=== PATIENT | female | born 1960 | race Caucasian/White ===

== ENCOUNTER → 2016-04-07 | Outpatient (CLI) | payer BC ==
--- NOTE | 2016-04-07 13:49 | MA ---
Screening Digital Mammogram With iCAD Analysis Clinical Indications: Routine screening. Technique: Standard cephalocaudal projections are obtained. Digital breast tomosynthesis was performe d in the MLO projection with reconstruction at 1.0 mm slice thickness and composite MLO views reconst ructed. This examination is processed by the iCAD computer aided detection system. Comparison: April 2014, January 2013, November 2011, December 2010, April 2009, April 2008. Breast density: Type B; Scattered fibroglandular densities. Findings: CAD was reviewed. No masses, suspicious calcifications or secondary signs of malignancy are seen. There has been no significant change in the appearance of either breast. Impression: Negative mammogram. BI-RADS 1. Recommendation: Routine mammographic screening in one year as long as physical examination is neg[facility]. Negative mammography should not preclude additional workup of a clinically suspicious finding. The patient's information is entered into a reminder system with a target due date for her next mammo gram.
== END ==
LOC: FIMAGING 09:46
DX: Z12.31 Encounter for screening mammogram for malignant neoplasm of breast (principal)

== ENCOUNTER → 2017-03-25 | Outpatient (CLI) | payer BC | LOC: FIMAGING 11:20 | PROVIDERS: ATTEND Family Medicine | DX: Z12.31 Encounter for screening mammogram for malignant neoplasm of breast (principal) ==

== ENCOUNTER 2017-12-21 07:15 | Observation (INO) | payer BC ==
--- NOTE | 2017-12-20 18:26 | GHP ---
DATE OF SURGERY: 12/21/2017. HISTORY: The patient is a 57-year-old female who presents with right knee pain, swelling, and stiffn ess. This has been chronic and progressive. I have taken care of her knee for some time now and she has had numerous approaches and therapies. She has had a right knee arthroscopic chondroplasty in 2 012. She has had steroid injection, hyaluronic acid injection, PRP injections. A recent MRI shows s evere tricompartment osteoarthritis, most severe in the medial and patellofemoral spaces. Her knee i s significantly impacting her quality of life, impacting her range of motion, comfort, gait, even act ivities of daily living. A right total knee arthroplasty is planned. PAST MEDICAL HISTORY: Medical concerns include elevation of cholesterol, not being treated medically . She has a history of migraines. She has had a procedure on her right knee as noted, left wrist, l eft leg, hysterectomy, appendectomy. She is using only edgardo gel. ALLERGIES: She has a number of allergies including Ancef, causing severe headache; Biaxin, causing a headache; Compazine; doxycycline; and penicillins. SOCIAL HISTORY: She is a nonsmoker. REVIEW OF SYSTEMS: Negative for cardiopulmonary disease. PHYSICAL EXAM: GENERAL: The patient is a well-developed, well-nourished female in no apparent distr ess. HEAD AND NECK: Normocephalic, atraumatic. CHEST: Clear. CARDIOVASCULAR: Regular rate and r hythm. ABDOMEN: Soft. NEUROLOGIC: She is alert and oriented x3. EXTREMITIES: Examination of the right knee shows a slight flexion contracture, flexion to about 125 degrees. She has a small effusi on. She has diffuse joint line tenderness. Ligamentously, the knee feels stable. SKIN: Intact. N EUROVASCULAR: Intact. IMPRESSION: Right knee osteoarthritis. PLAN: Right total knee arthroplasty. Benefits and risks of surgery have been reviewed with the bernie ent. She understands that the risks include infection, damage to blood vessel or nerve, failure or l oosening of components and need for revision, blood clot in the leg or lungs, bleeding, and need for transfusion. She really has exhausted other measures of managing her knee and is ready to proceed wi th a knee replacement. She has signed a consent form and wishes to proceed. /[id number]/MODL
[~2017-12-21 07:15] MED LIST: POVIDONE-IODINE 20 ML in SODIUM CL IRRIG SOLUTION 500 ML IRR ONE; ROPIVACAINE 0.2% 80 MG, EPINEPHrine 0.2 MG, KETOROLAC TROMETHAMINE 30 MG in SYRINGE 0 ML IU ONE; TRANEXAMIC ACID 1,000 MG in NS 100 ML IV ONE; VANCOMYCIN 1 GM in NS 250 ML IV ONE; VANCOMYCIN PHARMACY TO DOSE MISC ONE
[2017-12-21] MEDS ORDERED: DEXAMETHASONE 4 MG/ML VIAL IVP ONE (10:33)
[2017-12-21] MEDS ORDERED: ACETAMINOPHEN 325 MG TAB PO ONE (10:33)
[2017-12-21] MEDS ORDERED: ONDANSETRON 4 MG/2 ML VIAL IVP ONE (10:33)
[2017-12-21] MEDS ORDERED: FAMOTIDINE 20 MG TAB PO ONE (10:33)
[2017-12-21] MEDS ORDERED: GABAPENTIN 300 MG CAP PO ONE (10:33)
[2017-12-21] MEDS ORDERED: LR 1,000 ML IV ONE (10:34)
[2017-12-21] MEDS ORDERED: ceFAZolin 1 GM/5 ML SYR ONE (10:59)
--- NOTE | 2017-12-21 12:34 | PDHPUP ---
History & Physical Update H&P update statement: This history and physical update is based on an assessment of the patient which was completed after admission or registration (within 24 hours), but prior to the surgery/procedure. no change H&P update: H&P reviewed & patient examined (no change)
[2017-12-21] MEDS ORDERED: fentaNYL 100 MCG/2 ML INJ IVP PRN (12:43)
[2017-12-21] MEDS ORDERED: DEXAMETHASONE 4 MG/ML VIAL IVP PRN (12:43)
[2017-12-21] MEDS ORDERED: NALOXONE HCL 0.4 MG/ML INJ IVP PRN (12:43)
[2017-12-21] MEDS ORDERED: MIDAZOLAM 2 MG/2 ML VIAL IVP ONE (12:43)
[2017-12-21] MEDS ORDERED: oxyCODONE IR 5 MG TAB PO PRN (12:43)
[2017-12-21] MEDS ORDERED: ACETAMINOPHEN 500 MG TAB PO PRN (12:43)
[2017-12-21] MEDS ORDERED: ONDANSETRON 4 MG/2 ML VIAL IVP PRN ×2 (12:43→15:27)
[2017-12-21] MEDS ORDERED: ALBUTEROL 3 ML DEYVIAL IH PRN (12:43)
[2017-12-21] MEDS ORDERED: HYDROmorphONE/DILAUDID 2 MG/ML INJ IVP PRN (12:43)
[2017-12-21] MEDS ORDERED: MIDAZOLAM 2 MG/2 ML VIAL ONE (12:47)
[2017-12-21] MEDS ORDERED: PROPOFOL/EMULSION 500 MG/50 ML BOTTLE IV ONE ×2 (12:53)
[2017-12-21] MEDS ORDERED: ONDANSETRON 4 MG/2 ML VIAL ONE (12:54)
[2017-12-21] MEDS ORDERED: DEXAMETHASONE 4 MG/ML VIAL ONE (12:54)
--- NOTE | 2017-12-21 13:16 | PDANEPAE ---
ANE History of Present Illness R Knee TKA ANE Past Medical History - Cardiovascular History Hx Hypertension: No Hx Arrhythmias: No Hx Chest Pain: No Hx Coronary Artery / Peripheral Vascular Disease: No Hx CHF / Valvular Disease: No Hx Palpitations: No - Pulmonary History Hx COPD: No Hx Asthma/Reactive Airway Disease: No Hx Recent Upper Respiratory Infection: No Hx Oxygen in Use at Home: No Hx Sleep Apnea: No Sleep Apnea Screening Result - Last Documented: Negative - Neurologic History Hx Cerebrovascular Accident: No Hx Seizures: No Hx Dementia: No - Endocrine History Hx Diabetes: No - Renal History Hx Renal Disorders: Yes Renal History Comment: hx of prolapsed uterus and bladder resulting in hysterectomy a year ago - Liver History Hx Hepatic Disorders: No - Neurological & Psychiatric Hx Hx Neurological and Psychiatric Disorders: No - Cancer History Hx Cancer: No - Congenital Disorder History Hx Congenital Disorders: No - GI History Hx Gastrointestinal Disorders: Yes Gastrointestinal History Comment: SIBO 02/2016- no problems currently - Other Health History Other Health History: permanent make-up and one tattoo. wears glasses/ contacts. dry skin to right thumb. lower partial plate. wears upper retainer at [facility]. wears orthothadics - Chronic Pain History Chronic Pain: Yes (right knee) - Surgical History Prior Surgeries: hysterectomy 2017 at [facility]. right knee surgery- scopes x2. appy. broken leg repair at 6 yo. dental extractions- oral surgeries. wisdom teeth. corrective eye surgery ANE Review of Systems Review of Systems: - Exercise capacity METS (RN): 4 METS ANE Patient History - Allergies Allergies/Adverse Reactions: chlorhexidine Allergy (Mild, Verified 12/21/17 11:33) Itching Cephalosporins Allergy (Verified 11/18/17 15:13) really bad headaches clarithromycin [From Biaxin] Allergy (Verified 11/18/17 09:56) Headache doxycycline Allergy (Verified 11/18/17 09:56) Headache Penicillins Allergy (Verified 11/18/17 09:56) Hives prochlorperazine [From Compazine] Allergy (Verified 11/18/17 14:59) "Cant control the muscles in face" - Home Medications Home Medications: Calcium Carbonate [Oyster Shell Calcium 500 mg (*)] 500 mg PO DAILY 11/18/17 [ Last Taken 12/19/17] Cholecalciferol Vit D3 [Vitamin D3 (*)] 1,000 units PO DAILY 11/18/17 [Last Taken 12/19/17] Cyclobenzaprine [Flexeril 10 MG (*)] 10 mg PO DAILY PRN 11/18/17 [Last Taken ] Glucosamine Sulfate [Glucosamine Sulfate 500 MG (*)] 500 mg PO DAILY 11/18/17 [ Last Taken 12/19/17] Herbals/Supplements -Info Only 1 ea PO DAILY 11/18/17 [Last Taken 12/19/17] Ibuprofen [Motrin (*)] 200 mg PO DAILY PRN 11/18/17 [Last Taken 12/20/17] Magnesium Oxide [Magnesium Oxide 400 mg (*)] 400 mg PO DAILY 11/18/17 [Last Taken Unknown] Tetrahydrozoline 0.05% [Visine (*)] 1 drop EACHEYE DAILY PRN 11/18/17 [Last Taken 12/20/17] Estradiol [Estrogel] 1 quinton VG DAILY 12/14/17 [Last Taken 12/21/17] - NPO status NPO Since - Liquids (Date): 12/21/17 NPO Since - Liquids (Time): 10:00 NPO Since - Solids (Date): 12/20/17 NPO Since - Solids (Time): 21:00 - Smoking Hx Smoking Status: Never smoked - Family Anes Hx Family Hx Anesthesia Complications: none ANE Labs/Vital Signs - Vital Signs Blood Pressure: 104/71 Heart Rate: 71 Respiratory Rate: 14 O2 Sat (%): 95 Height: 163.83 cm Weight: 58.967 kg ANE Physical Exam - Airway Neck exam: FROM Mallampati Score: Class 2 Mouth exam: normal dental/mouth exam - Pulmonary Pulmonary: clear to auscultation - Cardiovascular Cardiovascular: regular rate and rhythym - ASA Status ASA Status: II ANE Anesthesia Plan Anesthesia Plan: spinal Regional Anesthesia: adductor canal FNB
[2017-12-21] MEDS ORDERED: ROPIVACAINE HCL 150 MG/30 ML INJ ONE (14:58)
[2017-12-21] MEDS ORDERED: MAGNESIUM HYDROXIDE 30 ML UDCUP PO PRN (15:27)
[2017-12-21] MEDS ORDERED: DIPHENOXYLATE/ATROPINE LOMOTIL 1 TAB PO PRN (15:27)
[2017-12-21] MEDS ORDERED: LACTULOSE 20 GM/30 ML UDCUP PO PRN (15:27)
[2017-12-21] MEDS ORDERED: DIAZEPAM 5 MG TAB PO PRN (15:27)
[2017-12-21] MEDS ORDERED: METOCLOPRAMIDE 10 MG/2 ML VIAL IVP PRN (15:27)
[2017-12-21] MEDS ORDERED: POLYETHYLENE GLYCOL 3350 17 GM PKT PO PRN (15:27)
[2017-12-21] MEDS ORDERED: diphenhydrAMINE 25 MG CAP PO PRN (15:27)
[2017-12-21] MEDS ORDERED: TEMAZEPAM 15 MG CAP PO PRN (15:27)
[2017-12-21] MEDS ORDERED: ONDANSETRON DISINTEGRATING 4 MG TAB PO PRN (15:27)
[2017-12-21] MEDS ORDERED: CYCLOBENZAPRINE 10 MG TAB PO PRN (15:27)
[2017-12-21] MEDS ORDERED: BISACODYL 10 MG SUPP PR PRN (15:27)
[2017-12-21] MEDS ORDERED: TETRAHYDROZOLINE 0.05% 15 ML OPHT.BTL EACHEYE PRN (15:30)
[2017-12-21] MEDS ORDERED: LR 1,000 ML IV SCH (15:30)
--- NOTE | 2017-12-21 15:45 | POSTANESTH ---
Post Anesthetic Evaluation Cardiovascular Status: Normal, Stable Respiratory Status: Normal, Stable Level of Consciousness/Mental Status: Can Participate in Eval, Alert and Oriented Pain Control: Adequate, Prn Tx Ordered Nausea/Vomiting Control: Adequate, Prn Tx Ordered Complications Possibly Related to Anesthesia: None Noted
--- NOTE | 2017-12-21 15:50 | GOP ---
DATE OF OPERATION: 12/21/2017 SURGEON: Colten Jacobo MD TECHNICAL SYSTEMS ARCHITECT: ENA Arellano, LSA. ANESTHESIOLOGIST: Andrew Sorto DO. PREOPERATIVE DIAGNOSIS: Right knee osteoarthritis. POSTOPERATIVE DIAGNOSIS: Right knee osteoarthritis. PROCEDURE PERFORMED: Right total knee arthroplasty. FINDINGS: SPECIMENS: Excised bone. ESTIMATED BLOOD LOSS: Minimal. INDICATIONS: The patient is a 57-year-old female who has had chronic and progressive right knee pain and swelling. She has progressed to severe tricompartment osteoarthritis and multiple appropriate c onservative measures have been tried. Her x-rays show degenerative osteophytes as well as decreased joint space. MRI shows broad areas of grade 4 chondromalacia of the medial and patellofemoral compar tments. A right total knee arthroplasty is planned. DESCRIPTION OF PROCEDURE: The patient was taken to the operating room, and seated on the operating t able, received a spinal block by Dr. Sorto. She was then placed supine and administered IV sedation. She received vancomycin preoperatively as well as tranexamic acid. A tourniquet was fit high on th e right thigh. The right leg was prepped and draped with Betadine as she reacted with a lot of itchi ng to chlorhexidine when we tried that 1st preoperatively, so we used Betadine and the right leg was prepped and draped out free in the usual fashion. I elevated the extremity, exsanguinated the limb a nd inflated the tourniquet to 275 mmHg. I made a longitudinal incision in the midline, used a medial parapatellar arthrotomy and inverted the patella and it was about 21 mm thick. I removed 9 mm of ca rtilage and bone to accommodate the implant and appropriate PEG holes were drilled for the size 35 im plant. The trial was a good fit and reestablished the thickness of the patella. I used an intramedu llary guide on the femur, she had a slight flexion contracture, so I did an extra +2 cut in 5 degrees of valgus. I sized the femur between a 5 and a 6, downsized to a 5 and advanced it a bit anteriorly to prevent notching, and I completed the anterior, posterior, and camphor cuts and the notch cuts fo r this bi-cruciate stabilized knee and the size 5 trial was an excellent fit. On the tibia I used an extramedullary device and I adjusted the rotation, the posterior slope and used a benja that I placed initially when I made the femoral cut and a spacer was applied with the knee extended and I marked t he anterior tibia to establish enough room for the implants. I went a bit shy of that cut to go more conservatively and made a nice transverse cut of the tibia. I cleaned out the back of the knee incl uding osteophytes as well as meniscal tissue. I debrided out residual cruciate material. I sized th e tibia to a 4 and I dialed in the rotation and then completed the tibial prep. All the components w ere removed, all the surfaces jet lavaged with antibiotics and dried. All 3 components were cemented . The femur a size 5, tibia size 4 and the patella 35. I then did trial reductions. The 9 was a go od fit. I tried a 10, it was a bit tight, so I downsized to the 9 articular insert which allowed ful l extension, excellent rollback in flexion, appropriate ligament stability. The patella tracked appr opriately. The size 9 mm thick articular tray was placed and the tourniquet was let down at about an hour and 15 minutes. Hemostasis achieved. The knee was irrigated with Betadine then saline with an tibiotics. I closed the arthrotomy with interrupted akheai-[id number] sutures of 0 Mersilene. Subcuta neous tissue was closed with 2-0 Monocryl and the skin was closed with isaac. The wound was dresse d with Betadine-soaked Adaptic, 4x4s, sterile Webril, and a long-leg BERYL stocking was applied. There were no complications. DRAINS: No drains. COUNTS: All counts were correct and the patient was taken in stable condition to recovery. My surgical elastic knitter hand frame, Derrick Mccrary, was a medical necessity for this total knee replacement. SUMMARY OF COMPONENTS: This is a [employer] knee, bi-cruciate stabilized Oxinium femur ,all components cemented, femur size 5, tibia size 4, patella 35, articular insert 9 mm thick. /[id number]/MODL
[2017-12-21] MEDS: ACETAMINOPHEN 325 MG TAB PO SCH ×2 (18:01→23:26)
[2017-12-21] MEDS: oxyCODONE IR 5 MG TAB PO PRN ×2 (18:39→23:27)
[2017-12-21] MEDS ORDERED: VANCOMYCIN 750 MG in D5W 150 ML IV ONE (19:00)
[2017-12-21] MEDS: FAMOTIDINE 20 MG TAB PO SCH (20:11)
[2017-12-21] MEDS: ASPIRIN 81 MG CHEWABLE TAB PO SCH (20:12)
[2017-12-21] MEDS: SENNOSIDES/DOCUSATE SODIUM TAB PO SCH (20:12)
[2017-12-22] MEDS: ACETAMINOPHEN 325 MG TAB PO SCH ×2 (04:49→11:27)
[2017-12-22] MEDS: oxyCODONE IR 5 MG TAB PO PRN ×2 (06:19→11:28)
--- NOTE | 2017-12-22 08:54 | SOAPPROG ---
BERNA[facility] Progress Note Assessment/Plan: Assessment: 12/22/17, postop day 1, right total knee arthroplasty, hematocrit is 34. Post op x-rays look fine. She has been up with physical therapy likely home later today Plan: 12/22/17 08:52 pt/ot, likely home, oxy, asa, celebrex, tylenol, has PT set up Objective: Vital Signs Temp Pulse Resp BP Pulse Ox 36.9 C 69 13 94/56 L 96 12/22/17 08:00 12/22/17 08:00 12/22/17 08:00 12/22/17 08:00 12/22/17 08:00 Laboratory Results 12/22/17 04:30 12/21/17 17:37 12/21/17 12/22/17 12/23/17 05:59 05:59 05:59 Intake Total 1475 800 Output Total 1930 300 Balance -455 500 ICD10 Worksheet Patient Problems: Problems Problem Status Onset Osteoarthritis of right knee Acute - ICD10 Problem Qualifiers (1) Osteoarthritis of right knee
[2017-12-22] MEDS ORDERED: CHOLECALCIFEROL VIT D3 1,000 UNITS TAB PO SCH (09:00)
[2017-12-22] MEDS ORDERED: CALCIUM CARBONATE 500 MG TAB PO SCH (09:00)
[2017-12-22] MEDS ORDERED: MAGNESIUM OXIDE 400 MG TAB PO SCH (09:00)
[2017-12-22] MEDS ORDERED: ESTRADIOL VG SCH (09:00)
[2017-12-22] MEDS ORDERED: GLUCOSAMINE SULF 500 MG CAP PO SCH (09:00)
[2017-12-22] MEDS: SENNOSIDES/DOCUSATE SODIUM TAB PO SCH (09:36)
[2017-12-22] MEDS: FAMOTIDINE 20 MG TAB PO SCH (09:37)
[2017-12-22] MEDS: ASPIRIN 81 MG CHEWABLE TAB PO SCH (09:37)
--- NOTE | 2017-12-22 10:14 | ASMTLACE ---
LACE Length of stay for Answers: 2 days current admission Acuity / Level of Answers: No Care: Did the patient have an inpatient admission? Comorbidities - select Answers: Opioid dependence all that apply / Chronic pain Other Notes: HLD # of Emergency department Answers: 0 visits in the last 6 months Score: 7 Date Signed: 12/22/2017 10:14 AM Electronically Signed By:JUAN Steinberg
--- NOTE | 2017-12-22 10:44 | ASMTCMCOM ---
CM Note CM Note Notes: Pt s/p planned OA of knee. PT rec home/outpatient. Pt has outpatient PT scheduled Thursday. Pt medically stable for d/c, no CM d/c needs identified. Date Signed: 12/22/2017 10:43 AM Electronically Signed By:JUAN Steinberg
[2017-12-22 11:37] VITALS: BP 92/52
== END 2017-12-22 12:17 | disposition home or self-care (01) ==
LOC: F3N 10:17
PROVIDERS: ADMIT Orthopaedic Surgery; ATTEND Orthopaedic Surgery
PROC: 0SRC0J9 Replacement of Right Knee Joint with Synthetic Substitute, Cemented, Open Approach (ICD-10-PCS; principal; 2017-12-21 12:00)
DX: M17.11 Unilateral primary osteoarthritis, right knee (principal); E78.5 Hyperlipidemia, unspecified
CPT/HCPCS: 27447; 73560; 97116; 97161; 97165; G0378; C1713; J0171; J1100; J1885; J2250; J2405; J2704; J2795; J3370

== ENCOUNTER 2017-12-24 22:10 | Emergency (ER) | payer BC ==
--- NOTE | 2017-12-24 22:35 | EDPHY ---
H & P Time Seen by Provider: 12/24/17 22:25 HPI/ROS: CHIEF COMPLAINT: Right knee pain and leg swelling HISTORY OF PRESENT ILLNESS: Patient is a 57-year-old female who underwent total knee arthroplasty on Thursday which was 3 days ago. She was discharged on postop day 2 without any complications. She states she has been doing well and then this evening she noticed that her right knee was swollen and erythematous and that her right calf was more swollen than the left. She also reports numbness around the area that is erythematous and swollen. She does deny any numbness or discoloration of the foot distally. She is taking no blood thinners. She has had no fever. She denies feeling sick or vomiting. She has been doing physical therapy. She denies any chest pain or shortness of breath. There was no fall or injury to the knee. REVIEW OF SYSTEMS: Constitutional: No fever, no chills. Eyes: No discharge. ENT: No sore throat. Cardiovascular: No chest pain, no palpitations. Respiratory: No cough, no shortness of breath. Gastrointestinal: No abdominal pain, no vomiting. Genitourinary: No hematuria. Musculoskeletal: No back pain. Skin: No rashes. Neurological: No headache. Smoking Status: Never smoked Physical Exam: General Appearance: Alert and no distress. ENT: normal dentition. No tonsillar exudate or swelling. Eyes: Pupils equal and round no injection. Respiratory: Chest is nontender, lungs are clear to auscultation. Cardiac: regular rate and rhythm. No lower extremity edema Gastrointestinal: Abdomen is soft and nontender, no masses, bowel sounds normal. Musculoskeletal: Erythematous swollen her right knee, dressing in place over the anterior knee. Erythema extending from the proximal knee to the proximal tibia. Right calf slightly enlarged when compared to the left. Neurovascular intact distal to the right knee. Pedal pulses are strong. Negative Loi. Extremities have full range of motion and are nontender without deformity Skin: Erythematous swollen right knee. Neuro: Cranial nerves grossly intact. Constitutional: Initial Vital Signs Temperature (C) 36.5 C 12/24/17 22:58 Heart Rate 61 12/24/17 22:58 Respiratory Rate 14 12/24/17 22:58 Blood Pressure 111/77 12/24/17 22:58 O2 Sat (%) 97 12/24/17 22:58 O2 Delivery Mode Room Air Allergies/Adverse Reactions: chlorhexidine Allergy (Mild, Verified 12/24/17 22:13) Itching Cephalosporins Allergy (Verified 12/24/17 22:13) really bad headaches clarithromycin [From Biaxin] Allergy (Verified 12/24/17 22:13) Headache doxycycline Allergy (Verified 12/24/17 22:13) Headache Penicillins Allergy (Verified 12/24/17 22:13) Hives prochlorperazine [From Compazine] Allergy (Verified 12/24/17 22:13) "Cant control the muscles in face" Home Medications: Medication Instructions Recorded Calcium Carbonate [Oyster Shell 500 mg PO DAILY 11/18/17 Calcium 500 mg (*)] Cholecalciferol Vit D3 [Vitamin D3 1,000 units PO DAILY 11/18/17 (*)] Cyclobenzaprine [Flexeril 10 MG 10 mg PO DAILY PRN 11/18/17 (*)] Glucosamine Sulfate [Glucosamine 500 mg PO DAILY 11/18/17 Sulfate 500 MG (*)] Herbals/Supplements -Info Only 1 ea PO DAILY 11/18/17 Ibuprofen [Motrin (*)] 200 mg PO DAILY PRN 11/18/17 Magnesium Oxide [Magnesium Oxide 400 mg PO DAILY 11/18/17 400 mg (*)] Tetrahydrozoline 0.05% [Visine (*)] 1 drop EACHEYE DAILY PRN 11/18/17 Estradiol [Estrogel] 1 quinton VG DAILY 12/14/17 Acetaminophen [Tylenol 325mg (*)] 650 mg PO Q6HRS tab 12/22/17 Aspirin [Aspirin 81mg (*)] 81 mg PO BID tab.chew 12/22/17 celeCOXIB [Celebrex (*)] 200 mg PO DAILY #30 cap 12/22/17 oxyCODONE IR [Oxycodone Ir (*)] 5 - 10 mg PO Q3HRS PRN #30 tab 12/22/17 Clindamycin HCl [Clindamycin] 300 mg PO QID 7 Days #28 cap 12/24/17 Medical Decision Making - Diagnostics Imaging Results: Imaging Impressions Extremity Venous Study 12/24/17 22:33 Impression: No evidence of deep vein thrombosis. Findings discussed with Wilberto Rees 12/24/2017 at 23:28. ED Course/Re-evaluation: Patient here with concern for DVT status post total knee arthroplasty. She is neurovascular intact distal to the knee but she does have mild erythema surrounding the incision. She is afebrile nontoxic-appearing is able to move the knee make my suspicion for septic knee very low. Ultrasound is negative for DVT. I discussed case with Dr. Turcios who agrees with plan to treat with clindamycin for cellulitis and have her follow up their office for further evaluation. The patient is agreeable with this plan. Differential Diagnosis: Septic joint, DVT, cellulitis, postoperative swelling - Data Points Laboratory Results: Laboratory Results 12/24/17 22:40 12/24/17 22:40 12/24/17 12/24/17 22:40 22:40 WBC 9.45 10^3/uL 10^3/uL (3.80-9.50) RBC 3.79 10^6/uL L 10^6/uL (4.18-5.33) Hgb 11.8 g/dL L g/dL (12.6-16.3) Hct 34.3 % L % (38.0-47.0) MCV 90.5 fL fL (81.5-99.8) MCH 31.1 pg pg (27.9-34.1) MCHC 34.4 g/dL g/dL (32.4-36.7) RDW 12.4 % % (11.5-15.2) Plt Count 275 10^3/uL 10^3/uL (150-400) MPV 9.3 fL fL (8.7-11.7) Neut % (Auto) 57.5 % % (39.3-74.2) Lymph % (Auto) 31.2 % % (15.0-45.0) [place] % (Auto) 7.5 % % (4.5-13.0) Eos % (Auto) 3.0 % % (0.6-7.6) Baso % (Auto) 0.3 % % (0.3-1.7) Nucleat RBC Rel Count 0.0 % % (0.0-0.2) Absolute Neuts (auto) 5.43 10^3/uL 10^3/uL (1.70-6.50) Absolute Lymphs (auto) 2.95 10^3/uL 10^3/uL (1.00-3.00) Absolute Monos (auto) 0.71 10^3/uL 10^3/uL (0.30-0.80) Absolute Eos (auto) 0.28 10^3/uL 10^3/uL (0.03-0.40) Absolute Basos (auto) 0.03 10^3/uL 10^3/uL (0.02-0.10) Absolute Nucleated RBC 0.00 10^3/uL 10^3/uL (0-0.01) Immature Gran % 0.5 % % (0.0-1.1) Immature Gran # 0.05 10^3/uL 10^3/uL (0.00-0.10) ESR 32 MM/HR H MM/HR (0-30) Sodium 132 mEq/L L mEq/L (135-145) Potassium 4.1 mEq/L mEq/L (3.3-5.0) Chloride 93 mEq/L L mEq/L (97-110) Carbon Dioxide 29 mEq/l mEq/l (22-31) Anion Gap 10 mEq/L mEq/L (6-14) BUN 11 mg/dL mg/dL (7-23) Creatinine 0.7 mg/dL mg/dL (0.6-1.0) Estimated GFR > 60 Glucose 105 mg/dL H mg/dL (70-100) Calcium 9.9 mg/dL mg/dL (8.5-10.4) C-Reactive Protein 135.2 mg/L H mg/L (<10.0) Medications Given: Discontinued Medications Clindamycin (Clindamycin) 300 mg PO EDNOW ONE PRN Reason: Protocol Stop: 12/24/17 23:57 Last Admin: 12/25/17 00:05 Dose: 300 mg Departure - Departure Disposition: Home, Routine, Self-Care Clinical Impression: Cellulitis of knee, right Condition: Good Instructions: Cellulitis (ED) Additional Instructions: Please call your orthopedic surgeon's office tomorrow morning and schedule appointment to be seen if possible tomorrow. Return to the ER if you develop severe worsening pain, fever or any other worsening or worrisome symptoms. Continue taking clindamycin as prescribed. Referrals: Davi Zelaya MD [Primary Care Provider] - As per Instructions Prescriptions: Clindamycin HCl [Clindamycin] 300 mg PO QID 7 Days #28 cap
[2017-12-24 22:53] LABS: PLATELET COUNT 275 10^3/uL (150-400)
[2017-12-24 22:59] VITALS: BP 111/77
[2017-12-24] MEDS ORDERED: CLINDAMYCIN 150 MG CAP PO ONE (23:56)
== END 2017-12-25 00:06 | disposition home or self-care (01) ==
DX: L03.115 Cellulitis of right lower limb (principal)

== ENCOUNTER → 2018-04-29 | Outpatient (CLI) | payer BC | LOC: FIMAGING 10:23 | PROVIDERS: ATTEND Family Medicine | DX: Z12.31 Encounter for screening mammogram for malignant neoplasm of breast (principal) ==